=== PATIENT | female | born 1955 | race Caucasian/White ===

== ENCOUNTER 2021-07-02 15:39 | Inpatient (IN) | payer MEDICARE, BC ==
[2021-07-02 19:18] VITALS: BMI 41.2
[2021-07-02] MEDS ORDERED: Meclizine HCl 25 MG TAB PO PRN (22:29)
[2021-07-02] MEDS ORDERED: Carvedilol 3.125 MG TAB PO SCH (23:59)
[2021-07-03] MEDS: Acetaminophen 325 MG TAB PO PRN ×4 (05:38→20:33)
[2021-07-03] MEDS ORDERED: FLU VACC QS2021-22(65YR UP)/PF 240 MCG/0.7 ML SYRINGE IM ONE (09:00)
[2021-07-03] MEDS ORDERED: Apixaban 5 MG TAB PO SCH (09:00)
[2021-07-03] MEDS: Bumetanide 1 MG TAB PO SCH (09:07)
[2021-07-03] MEDS: Digoxin 0.25 MG TAB PO SCH (09:07)
[2021-07-03] MEDS: Carvedilol 3.125 MG TAB PO SCH ×2 (09:07→17:42)
[2021-07-03] MEDS: Cholecalciferol 1,000 UNITS (25 MCG) TAB PO SCH (09:08)
[2021-07-03] MEDS: Multivitamin W/ Minerals 1 TAB PO SCH (09:08)
[2021-07-03] MEDS: FLUoxetine HCl 10 MG CAP PO SCH (09:08)
[2021-07-03] MEDS: CRANBERRY 400 MG PO SCH (09:20)
[2021-07-03] MEDS: GLUCOSAMINE HCL 750 MG PO SCH (09:21)
[2021-07-03] MEDS: Simvastatin 5 MG TAB PO SCH (20:33)
[2021-07-04] MEDS: Acetaminophen 325 MG TAB PO PRN ×5 (00:56→19:31)
[2021-07-04] MEDS: Aspirin Chewable 81 MG TAB PO SCH (09:53)
[2021-07-04] MEDS: Multivitamin W/ Minerals 1 TAB PO SCH (09:54)
[2021-07-04] MEDS: Digoxin 0.25 MG TAB PO SCH (09:54)
[2021-07-04] MEDS: FLUoxetine HCl 10 MG CAP PO SCH (09:54)
[2021-07-04] MEDS: Cholecalciferol 1,000 UNITS (25 MCG) TAB PO SCH (09:55)
[2021-07-04] MEDS: Carvedilol 3.125 MG TAB PO SCH ×2 (09:55→17:56)
[2021-07-04] MEDS: CRANBERRY 400 MG PO SCH (09:56)
[2021-07-04] MEDS: GLUCOSAMINE HCL 750 MG PO SCH (09:56)
[2021-07-04] MEDS: Bumetanide 1 MG TAB PO SCH (14:21)
[2021-07-04] MEDS ORDERED: Milk Of Magnesia 30 ML UDCUP PO PRN (20:23)
[2021-07-04] MEDS: Simvastatin 5 MG TAB PO SCH (21:47)
[2021-07-05] MEDS: Digoxin 0.25 MG TAB PO SCH (09:36)
[2021-07-05] MEDS: Multivitamin W/ Minerals 1 TAB PO SCH (09:37)
[2021-07-05] MEDS: FLUoxetine HCl 10 MG CAP PO SCH (09:37)
[2021-07-05] MEDS: Cholecalciferol 1,000 UNITS (25 MCG) TAB PO SCH (09:37)
[2021-07-05] MEDS: Carvedilol 3.125 MG TAB PO SCH ×2 (09:38→16:32)
[2021-07-05] MEDS: Aspirin Chewable 81 MG TAB PO SCH (09:38)
[2021-07-05] MEDS: Bumetanide 1 MG TAB PO SCH (09:38)
[2021-07-05] MEDS: Acetaminophen 325 MG TAB PO PRN ×2 (09:38→21:28)
[2021-07-05] MEDS: GLUCOSAMINE HCL 750 MG PO SCH (12:25)
[2021-07-05] MEDS: CRANBERRY 400 MG PO SCH (12:25)
[2021-07-05] MEDS: Simvastatin 5 MG TAB PO SCH (20:20)
[2021-07-05] MEDS ORDERED: Apixaban 5 MG TAB PO SCH (23:30)
[2021-07-06 05:20] LABS: Hemoglobin 12.9 g/dL (12.0-16.0); Platelet Count 350 thou/uL (130-400)
[2021-07-06] MEDS: Cholecalciferol 1,000 UNITS (25 MCG) TAB PO SCH (08:30)
[2021-07-06] MEDS: Digoxin 0.25 MG TAB PO SCH (08:30)
[2021-07-06] MEDS: Multivitamin W/ Minerals 1 TAB PO SCH (08:30)
[2021-07-06] MEDS: FLUoxetine HCl 10 MG CAP PO SCH (08:30)
[2021-07-06] MEDS: Apixaban 5 MG TAB PO SCH ×2 (08:31→20:00)
[2021-07-06] MEDS: Bumetanide 1 MG TAB PO SCH (08:32)
[2021-07-06] MEDS: Carvedilol 3.125 MG TAB PO SCH ×2 (08:32→17:34)
[2021-07-06] MEDS: Acetaminophen 325 MG TAB PO PRN ×3 (08:32→19:55)
[2021-07-06] MEDS: GLUCOSAMINE HCL 750 MG PO SCH (11:09)
[2021-07-06] MEDS: CRANBERRY 400 MG PO SCH (11:09)
[2021-07-06] MEDS: Simvastatin 5 MG TAB PO SCH (20:00)
[2021-07-07] MEDS: Acetaminophen 325 MG TAB PO PRN ×4 (01:33→22:38)
[2021-07-07] MEDS: Cholecalciferol 1,000 UNITS (25 MCG) TAB PO SCH (09:17)
[2021-07-07] MEDS: Digoxin 0.25 MG TAB PO SCH (09:17)
[2021-07-07] MEDS: Multivitamin W/ Minerals 1 TAB PO SCH (09:17)
[2021-07-07] MEDS: Bumetanide 1 MG TAB PO SCH (09:18)
[2021-07-07] MEDS: Carvedilol 3.125 MG TAB PO SCH ×2 (09:18→18:05)
[2021-07-07] MEDS: FLUoxetine HCl 10 MG CAP PO SCH (09:18)
[2021-07-07] MEDS: Apixaban 5 MG TAB PO SCH ×2 (09:18→20:21)
[2021-07-07] MEDS: GLUCOSAMINE HCL 750 MG PO SCH (09:20)
[2021-07-07] MEDS: CRANBERRY 400 MG PO SCH (09:20)
[2021-07-07] MEDS: Simvastatin 5 MG TAB PO SCH (20:21)
[2021-07-08] MEDS: Apixaban 5 MG TAB PO SCH ×2 (09:18→20:17)
[2021-07-08] MEDS: Acetaminophen 325 MG TAB PO PRN ×3 (09:18→22:54)
[2021-07-08] MEDS: Digoxin 0.25 MG TAB PO SCH (09:18)
[2021-07-08] MEDS: FLUoxetine HCl 10 MG CAP PO SCH (09:19)
[2021-07-08] MEDS: Bumetanide 1 MG TAB PO SCH (09:19)
[2021-07-08] MEDS: Cholecalciferol 1,000 UNITS (25 MCG) TAB PO SCH (09:19)
[2021-07-08] MEDS: Multivitamin W/ Minerals 1 TAB PO SCH (09:19)
[2021-07-08] MEDS: Carvedilol 3.125 MG TAB PO SCH ×2 (09:19→17:53)
[2021-07-08] MEDS: GLUCOSAMINE HCL 750 MG PO SCH (09:20)
[2021-07-08] MEDS: CRANBERRY 400 MG PO SCH (09:20)
[2021-07-08 11:05] LABS: SARS-CoV-2 PCR by NAA Not Detected (NotDetected)
[2021-07-08] MEDS: Simvastatin 5 MG TAB PO SCH (20:17)
[2021-07-09 04:47] LABS: Hemoglobin 12.3 g/dL (12.0-16.0); Platelet Count 384 thou/uL (130-400)
[2021-07-09] MEDS: FLUoxetine HCl 10 MG CAP PO SCH (08:43)
[2021-07-09] MEDS: Cholecalciferol 1,000 UNITS (25 MCG) TAB PO SCH (08:43)
[2021-07-09] MEDS: Apixaban 5 MG TAB PO SCH ×2 (08:45→20:28)
[2021-07-09] MEDS: Bumetanide 1 MG TAB PO SCH (08:46)
[2021-07-09] MEDS: Digoxin 0.25 MG TAB PO SCH (08:46)
[2021-07-09] MEDS: Multivitamin W/ Minerals 1 TAB PO SCH (08:46)
[2021-07-09] MEDS: Carvedilol 3.125 MG TAB PO SCH ×2 (08:46→16:34)
[2021-07-09] MEDS: Acetaminophen 325 MG TAB PO PRN ×3 (08:46→22:07)
[2021-07-09] MEDS: Simvastatin 5 MG TAB PO SCH (20:28)
[2021-07-10] MEDS: FLUoxetine HCl 10 MG CAP PO SCH (08:12)
[2021-07-10] MEDS: Digoxin 0.25 MG TAB PO SCH (08:13)
[2021-07-10] MEDS: Multivitamin W/ Minerals 1 TAB PO SCH (08:13)
[2021-07-10] MEDS: Carvedilol 3.125 MG TAB PO SCH ×2 (08:13→17:14)
[2021-07-10] MEDS: Cholecalciferol 1,000 UNITS (25 MCG) TAB PO SCH (08:13)
[2021-07-10] MEDS: Bumetanide 1 MG TAB PO SCH (08:15)
[2021-07-10] MEDS: Apixaban 5 MG TAB PO SCH ×2 (08:15→20:00)
[2021-07-10] MEDS: Acetaminophen 325 MG TAB PO PRN ×3 (08:21→20:01)
[2021-07-10] MEDS: Simvastatin 5 MG TAB PO SCH (20:00)
[2021-07-11] MEDS: Acetaminophen 325 MG TAB PO PRN ×2 (02:29→09:51)
[2021-07-11 06:19] VITALS: BP 99/64; TEMP 97.7
[2021-07-11] MEDS: FLUoxetine HCl 10 MG CAP PO SCH (09:50)
[2021-07-11] MEDS: Digoxin 0.25 MG TAB PO SCH (09:51)
[2021-07-11] MEDS: Cholecalciferol 1,000 UNITS (25 MCG) TAB PO SCH (09:51)
[2021-07-11] MEDS: Carvedilol 3.125 MG TAB PO SCH (09:52)
[2021-07-11] MEDS: Multivitamin W/ Minerals 1 TAB PO SCH (09:52)
[2021-07-11] MEDS: Bumetanide 1 MG TAB PO SCH (09:53)
[2021-07-11] MEDS: Apixaban 5 MG TAB PO SCH (09:53)
== END 2021-07-11 13:01 | disposition home health service (06) | DRG 561 ==
LOC: BURMED 18:38
PROVIDERS: ADMIT Family Medicine; ATTEND Family Medicine
DX: Z47.1 Aftercare following joint replacement surgery (principal); F32.A Depression, unspecified; Z20.822 Contact with and (suspected) exposure to COVID-19; I11.0 Hypertensive heart disease with heart failure; I50.9 Heart failure, unspecified; E87.70 Fluid overload, unspecified; I48.91 Unspecified atrial fibrillation; Z98.42 Cataract extraction status, left eye; Z98.41 Cataract extraction status, right eye; Z98.890 Other specified postprocedural states; Z79.01 Long term (current) use of anticoagulants; Z79.899 Other long term (current) drug therapy; Z88.1 Allergy status to other antibiotic agents; Z88.2 Allergy status to sulfonamides; Z88.8 Allergy status to other drugs, medicaments and biological substances
CPT/HCPCS: 36415; 82565; 85014; 85018; 85049; U0003; U0005